=== PATIENT | female | born 1950 | race Caucasian/White ===

== ENCOUNTER 2025-08-07 06:04 | Day surgery (SDC) | payer MEDICARE, BC ==
[2025-08-05 11:00] LABS: MEAN PLATELET VOLUME 7.4 FL (7.4-10.4); PRE OP HEMATOCRIT 42.4 % (35.0-45.0); PRE OP HEMOGLOBIN 14.4 g/dL (12.0-16.0); PRE OP PLATELET COUNT 284 X10'3 (140-440); PRE OP WHITE BLOOD COUNT 9.2 10'3 (4.8-10.8); RED CELL DISTRIBUTION WIDTH 13.8 % (11.5-14.5)
[2025-08-05 13:44] LABS: CREATININE 0.84 MG/DL (0.40-0.90); PRE OP ANION GAP 8 (8-16); PRE OP AST 15 U/L (10-37); PRE OP BILIRUB, TOTAL 0.7 MG/DL (0.0-1.0); PRE OP GLUCOSE 121 MG/DL (70-104); PRE OP POTASSIUM 3.9 MMOL/L (3.4-5.1); PRE OP SODIUM 140 MMOL/L (135-145); TOTAL CARBON DIOXIDE 27.8 MMOL/L (24-32); eGFR 66 ML/MIN
[2025-08-05 13:56] LABS: PRE OP ALT 5 U/L (30-65)
[2025-08-07] VITALS (11 sets, daily range): BP systolic 111–136; BP diastolic 58–103; PULSE 68–75; RESP 8–20; TEMP 89.9–97.5; O2SAT 94–99
[~2025-08-07] VITALS: Ht 167.6 cm; Wt 89.9 kg
[2025-08-07] MEDS: ceFAZolin 2gm/dext,iso 50mL 50 ML IV ONE (05:30)
[~2025-08-07 06:04] MED LIST: ASPI-1071 PO; CARB1TAB42 PO; CARB1TAB44 PO; CHOL100024 PO; CLON0.5T23 PO; CYAN-116 PO; ENTA200T5 PO; FENO145T26 PO; LIVAPLEX PO; LUTEIN PO; OMEG1CAP46 PO; OMEP10CA5 PO; PROTANDIM PO; ROSU10TA98 PO; THIA100T70 PO; ZINC50TA67 PO; [UNRECOGNIZED DRUG - OTHER] PO; [UNRECOGNIZED DRUG - OTHER] PO
[2025-08-07] MEDS ORDERED: methylene blue (5mg/ml) 50mg/10ml ampul IV ONE (06:40)
[2025-08-07] MEDS ORDERED: BUPIVAcaine 2.5mg/ml inj 50ml vial (contains preservative) ONE (06:40)
[2025-08-07] MEDS ORDERED: LIDOcaine 1% (10mg/ml)w/preservative inj. 20ml MDV ONE (06:40)
[2025-08-07] MEDS ORDERED: BUPIVACAINE liposomal/PF 13.3 MG/ML 10mL vial IM ONE (06:41)
[2025-08-07] MEDS: ringers solution, lacted 1,000 ML IV SCH (06:46)
[2025-08-07] MEDS ORDERED: fentaNYL/PF 50MCG/1 ML 2ML syringe ONE ×2 (08:02→09:12)
[2025-08-07] MEDS ORDERED: midazolam 1 mg/ML 2ml injection ONE (08:02)
[2025-08-07] MEDS ORDERED: dexamethasone sod phosphate 4mg/ml inj. ONE (08:03)
[2025-08-07] MEDS ORDERED: propofol inj 20 ML IV ONE (08:03)
[2025-08-07] MEDS ORDERED: ondansetron/PF 4mg/2ml inj ONE (08:03)
[2025-08-07] MEDS ORDERED: acetaminophen 1,000mg/100ml IV 100 ML IV ONE (08:03)
[2025-08-07] MEDS ORDERED: LIDOcaine 2% (20mg/ml) 5ml vial ONE (08:03)
[2025-08-07] MEDS ORDERED: ondansetron/PF 4mg/2ml inj IV PRN (08:30)
[2025-08-07] MEDS ORDERED: ringers solution, lacted 1,000 ML IV SCH (08:30)
[2025-08-07] MEDS ORDERED: labetalol 20mg/4ml (5mg/ml) syringe IV PRN (08:30)
[2025-08-07] MEDS ORDERED: hydrALAZINE 20mg/ml inj. IV PRN (08:30)
[2025-08-07] MEDS ORDERED: fentaNYL/PF 50MCG/1 ML 2ML syringe IV PRN (08:30)
[2025-08-07] MEDS ORDERED: HYDROmorphone/PF 0.2 MG/ML SYRINGE IV PRN ×2 (08:30)
[2025-08-07] MEDS ORDERED: phenylephrine 10mg/ml inj. ONE (09:02)
[2025-08-07] MEDS: LIDOcaine 1% 30ml preserv. free vial IJ ONE (09:11)
[2025-08-07] MEDS: BUPIVAcaine/PF 2.5mg/ml (0.25%) 10ml vial IJ ONE (09:12)
--- NOTE | 2025-08-07 10:43 | OPERATIVE REPORT ---
Operative Report Providers to CC CC: ALANA BELLAMY DO ~ Date of Procedure: Aug 07, 2025 Pre-Operative Diagnosis: right breast cancer Post-Operative Diagnosis SAME as PRE-Op Procedure Performed Right breast wireless (localized) lumpectomy Reading of specimen radiograph Surgeon: Dr. Bellamy Diamond Setter Gabriella Puckett PA-C Anesthesiologist: Sanjay Knutson Type of Anesthesia: General Findings: tracker detected on faxitron Complications None Prosthetics\Implants used: None Estimated Blood Loss: Less than 5 mL Specimen Removed: Right breast wire localized lumpectomy suture marked short superior long lateral double deep Right breast medial margin suture hammond final margin Description of Procedure: Maria A is a 75-year-old female who was diagnosed with right breast cancer ER VT positive. She was seen and evaluated in my office and we discussed the risks and benefits and alternatives to surgeries. I explained to her the surgical procedures of mastectomy and breast conservation. She decided to move forward with breast conservation. The right breast was marked with my initials. She had an IV placed, SCDs to the lower extremities, and antibiotics hanging at the bedside which were administered prior to the cut of surgery. Patient was taken to the OR and placed on table in supine position with the arms extended. The pin to wish probe was used to identify the spot in the upper outer quadrant at 10:30. I marked the skin with a marking pen. Patient was prepped and draped in a sterile fashion and a time-out was performed and agreed upon. A proposed incision was made with a marking pen in the upper outer quadrant. 1% lidocaine was injected at the site. The incision was made with a 15 blade. Chiki retractors were placed on the edges of the cavity I dissected into the breast tissue while using the probe to guide the dissection. I switched to Barker retractors. And dissected around the signal. Once it was removed from the cavity it was oriented with short stitch superior long suture lateral double suture deep. The specimen was secured to the specimen radiograph board and placed in the Faxitron. I was able to see the density in the breast tissue which appeared to be more centered and the marker which was medially. I reexcised and medial margin and oriented that was suture marking the final margin. Both specimens were placed in formalin. The cavity was irrigated. Hemostasis was achieved with Bovie electrocautery. The cavity was approximated with 3-0 silvana Vicryl suture. The skin was closed with 3-0 Vicryl suture and a 4-0 Monocryl running subcuticular stitch. Dermabond glue was placed on the incision. 0.25% Marcaine was injected at the site. A sterile dressing was placed over the incision in addition to pressure dressing and a breast binder. Patient tolerated the procedure well was taken to recovery in stable condition all needle and sponge counts were correct. ALANA BELLAMY DO Aug 07, 2025 10:43
[2025-08-07] MEDS: fentaNYL/PF 50MCG/1 ML 2ML syringe IV PRN (10:49)
== END 2025-08-07 11:27 | disposition home or self-care (01) ==
LOC: PAS 06:04
PROVIDERS: ATTEND Surgery
DX: C50.411 Malignant neoplasm of upper-outer quadrant of right female breast (principal); F41.9 Anxiety disorder, unspecified; G20.A1 Parkinson's disease without dyskinesia, without mention of fluctuations; J44.9 Chronic obstructive pulmonary disease, unspecified; K21.9 Gastro-esophageal reflux disease without esophagitis; K44.9 Diaphragmatic hernia without obstruction or gangrene; Z87.891 Personal history of nicotine dependence; Z98.890 Other specified postprocedural states; Z85.118 Personal history of other malignant neoplasm of bronchus and lung; Z88.8 Allergy status to other drugs, medicaments and biological substances
CPT/HCPCS: 19301; 36415; 76098; 80053; 82948; 85025; 88307; A4215; A4618; A6258; A7000; J0131; J1100; J2003; J2250; J2371; J2405; J2704; J3010; J3490; J7030; J7120; Q9968; Z7506; Z7508; Z7512; Z7610; J0666